=== PATIENT | male | born 2000 | race Caucasian/White ===

== ENCOUNTER 2018-08-16 11:45 | Emergency (ER) | payer OTHER | END 2018-08-16 12:33 | disposition home or self-care (01) | LOC: M ED 11:45 | DX: S80.01XA Contusion of right knee, initial encounter (principal); W10.8XXA Fall (on) (from) other stairs and steps, initial encounter; Y92.098 Other place in other non-institutional residence as the place of occurrence of the external cause | CPT/HCPCS: 73564 ==

== ENCOUNTER 2019-01-30 18:15 | Emergency (ER) | payer OTHER ==
[~2019-01-30] VITALS: Ht 190.5 cm; Wt 143.2 kg
[2019-01-30] MEDS ORDERED: ONDANSETRON 4 MG ORAL DISINTEGRATING TAB (Q0162 PER 1MG) PO ONE (21:45)
--- NOTE | 2019-01-30 22:14 | REP ---
Clinical: Trauma . Comparison: 07/24/2014, 08/21/2015 . Findings: The ventricles, sulci, and cisterns are normal in position and appearance. Jameson-white differentiation is maintained. No acute intracranial hemorrhage, mass/mass effect, pathology or trauma/injury. No evidence for acute infarction. No extra-axial fluid collection. Calvarium is intact. Paranasal sinuses and mastoid air cells are clear. Impression: Normal noncontrast head CT. No evidence for acute intracranial pathology or trauma/injury. Electronically Signed by Brian Enciso MD 01/30/2019 10:05 P
[2019-01-30] MEDS ORDERED: ONDA4TAB6 PO (22:23)
[2019-01-30 22:55] VITALS: BP 126/68
== END 2019-01-30 22:45 | disposition home or self-care (01) ==
LOC: M ED 18:15
DX: S06.0X0A Concussion without loss of consciousness, initial encounter (principal); X58.XXXA Exposure to other specified factors, initial encounter; Y92.89 Other specified places as the place of occurrence of the external cause; Y93.9 Activity, unspecified; Y99.0 Civilian activity done for income or pay
CPT/HCPCS: 70450; 99283; Q0162

== ENCOUNTER 2020-07-02 18:19 | Emergency (ER) | payer OTHER ==
[~2020-07-02] VITALS: Ht 190.5 cm; Wt 183.2 kg
[~2020-07-02 18:19] MED LIST: ONDA4TAB6 PO
[2020-07-02 19:55] LABS: BASO # 0.1 10^3/uL (0.0-0.2); BASO % 0.4 % (0.0-1.0); EOS # 0.1 10^3/uL (0.0-0.5); EOS % 0.7 % (0.0-3.0); HEMATOCRIT 47.8 % (42.0-52.0); HEMOGLOBIN 15.7 g/dl (13.5-17.5); LYMPH # 3.4 10^3/uL (1.5-5.0); LYMPH % 21.5 % (24.0-44.0); MEAN CORPUSCULAR HEMOGLOBIN 29.3 pg (27.0-33.0); MEAN CORPUSCULAR HGB CONC 32.8 g/dl (32.0-36.5); MEAN CORPUSCULAR VOLUME 89.2 fl (80.0-96.0); MONO # 0.9 10^3/uL (0.0-0.8); MONO % 5.6 % (0.0-5.0); NEUTROPHILS # 11.3 10^3/uL (1.5-8.5); PLATELET COUNT, AUTOMATED 271 10^3/uL (150-450); RED BLOOD COUNT 5.36 10^6/uL (4.30-6.10); WHITE BLOOD COUNT 15.9 10^3/uL (4.0-10.0)
[2020-07-02 20:05] LABS: INR 0.95; PROTHROMBIN TIME 12.9 SECONDS (11.8-14.0)
[2020-07-02] MEDS ORDERED: NS 1,000 ML IV ONE (20:15)
[2020-07-02 20:19] LABS: D-DIMER QUANT 374.86 ng/ml (<500)
[2020-07-02 21:32] LABS: ALBUMIN 3.5 GM/DL (3.2-5.2); ALT/SGPT 54 U/L (12-78); BILIRUBIN,DIRECT 0.1 MG/DL (0.0-0.2); BILIRUBIN,TOTAL 0.6 MG/DL (0.2-1.0); CK-MB VALUE MASS 1.7 NG/ML (<3.6); CPK CREATINE PHOSPHOKINASE 147 U/L (39-308); LIPASE 132 U/L (73-393); MB/CK RELATIVE INDEX 1.16 (< OR =4); TOTAL PROTEIN 7.5 GM/DL (6.4-8.2); TROPONIN I < 0.02 NG/ML (< 0.10)
[2020-07-02 21:44] LABS: BLOOD UREA NITROGEN 13 MG/DL (7-18); CALCIUM LEVEL 8.9 MG/DL (8.5-10.1); CARBON DIOXIDE LEVEL 25 MEQ/L (21-32); CHLORIDE LEVEL 101 MEQ/L (98-107); CREATININE FOR GFR 0.92 MG/DL (0.70-1.30); GLOMERULAR FILTRATION RATE > 60.0 (>60); GLUCOSE, FASTING 311 MG/DL (70-100); POTASSIUM SERUM 4.3 MEQ/L (3.5-5.1); SODIUM LEVEL 136 MEQ/L (136-145)
[2020-07-02 22:15] VITALS: BP 140/76
[2020-07-02 22:35] LABS: HEMOGLOBIN A1c 7.5 %
[2020-07-02] MEDS ORDERED: METF500T13 PO (23:00)
[2020-07-02] MEDS ORDERED: metFORMIN (GLUCOPHAGE) 500 MG TAB PO ONE (23:00)
--- NOTE | 2020-07-15 11:39 | ECGEPIP ---
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
--- NOTE | 2020-07-15 11:41 | ECGEPIP ---
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
== END 2020-07-03 00:38 | disposition home or self-care (01) ==
LOC: M ED 18:19
DX: R07.89 Other chest pain (principal); E11.9 Type 2 diabetes mellitus without complications

== ENCOUNTER → 2020-08-08 | Outpatient (REF) | payer OTHER ==
[~2020-08-08] MED LIST changes: +METF500T13 PO
[2020-08-08 13:01] LABS: BASO % 0.4 % (0.0-1.0); EOS # 0.1 10^3/uL (0.0-0.5); EOS % 1.1 % (0.0-3.0); HEMATOCRIT 48.8 % (42.0-52.0); HEMOGLOBIN 15.9 g/dl (13.5-17.5); LYMPH # 2.9 10^3/uL (1.5-5.0); LYMPH % 25.6 % (24.0-44.0); MEAN CORPUSCULAR HEMOGLOBIN 29.3 pg (27.0-33.0); MEAN CORPUSCULAR HGB CONC 32.6 g/dl (32.0-36.5); MONO # 0.7 10^3/uL (0.0-0.8); MONO % 6.2 % (0.0-5.0); NEUTROPHILS # 7.4 10^3/uL (1.5-8.5); NEUTROPHILS % 65.9 % (36.0-66.0); PLATELET COUNT, AUTOMATED 272 10^3/uL (150-450); RED BLOOD COUNT 5.42 10^6/uL (4.30-6.10); WHITE BLOOD COUNT 11.2 10^3/uL (4.0-10.0)
[2020-08-08 13:16] LABS: HEMOGLOBIN A1c 6.1 %
[2020-08-08 13:37] LABS: ALBUMIN 4.1 GM/DL (3.2-5.2); ALT/SGPT 59 U/L (12-78); BILIRUBIN,TOTAL 1.2 MG/DL (0.2-1.0); BLOOD UREA NITROGEN 16 MG/DL (7-18); CALCIUM LEVEL 9.1 MG/DL (8.5-10.1); CARBON DIOXIDE LEVEL 25 MEQ/L (21-32); CHLORIDE LEVEL 105 MEQ/L (98-107); CHOLESTEROL LEVEL 202 MG/DL (<200); CHOLESTEROL RISK RATIO 4.697 (<5); CREATININE FOR GFR 0.86 MG/DL (0.70-1.30); GLOMERULAR FILTRATION RATE > 60.0 (>60); GLUCOSE, FASTING 120 MG/DL (70-100); HDL CHOLESTEROL 43 MG/DL (>40); LDL CHOLESTEROL 132 MG/DL (<100); NON-HDL-C 159 MG/DL; POTASSIUM SERUM 4.7 MEQ/L (3.5-5.1); SODIUM LEVEL 137 MEQ/L (136-145); TOTAL PROTEIN 7.7 GM/DL (6.4-8.2); TRIGLYCERIDES LEVEL 133 MG/DL (<150)
== END ==
LOC: M LAB REF 12:20
PROVIDERS: ATTEND Physician Assistant
DX: E11.9 Type 2 diabetes mellitus without complications (principal)

== ENCOUNTER 2021-09-20 15:34 | Emergency (ER) | payer OTHER ==
[~2021-09-20] VITALS: Ht 190.5 cm; Wt 169.4 kg
[2021-09-20 16:45] LABS: RSV AMPLIFICATION NEGATIVE (NEGATIVE)
--- OUTSIDE RECORDS SUMMARY | 2021-09-20 19:32 | CCD ---
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 Role Phone Jos Smith Unavailable Unavailable Jos Smith Unavailable Unavailable Jos Smith Unavailable Unavailable Jos Smith Unavailable Unavailable Jos Smith Unavailable Unavailable Jos Smith Unavailable Unavailable Scordo, M Ritu PA Unavailable Unavailable Scordo, M Ritu PA Unavailable Unavailable Scordo, M Ritu PA Unavailable Unavailable Scordo, M Ritu PA Unavailable Unavailable Scordo, M Ritu PA Unavailable Unavailable Scordo, M Ritu PA Unavailable Unavailable Scordo, M Ritu PA Unavailable Unavailable Scordo, M Ritu PA Unavailable Unavailable Scordo, M Ritu PA Unavailable Unavailable Scordo, M Ritu PA Unavailable Unavailable Scordo, M Ritu PA Unavailable Unavailable Scordo, M Ritu PA Unavailable Unavailable Scordo, M Ritu PA Unavailable Unavailable Scordo, M Ritu PA Unavailable Unavailable Scordo, M Ritu PA Unavailable Unavailable Scordo, M Rtiu PA Unavailable Unavailable Scordo, M Ritu PA Unavailable Unavailable Scordo, M Ritu PA Unavailable Unavailable Scordo, M Ritu PA Unavailable Unavailable Scordo, M Ritu PA Unavailable Unavailable Scordo, M Ritu PA Unavailable Unavailable Scordo, M Ritu PA Unavailable Unavailable Scordo, M Ritu PA Unavailable Unavailable Scordo, M Ritu PA Unavailable Unavailable Scordo, M Ritu PA Unavailable Unavailable Scordo, M Ritu PA Unavailable Unavailable Scordo, M Ritu PA Unavailable Unavailable Scordo, M Ritu PA Unavailable Unavailable Scordo, M Ritu PA Unavailable Unavailable Scordo, M Ritu PA Unavailable Unavailable Scordo, M Ritu PA Unavailable Unavailable Scordo, M Ritu PA Unavailable Unavailable Scordo, M Ritu PA Unavailable Unavailable Scordo, M Ritu PA Unavailable Unavailable Scordo, M Ritu PA Unavailable Unavailable Scordo, M Ritu PA Unavailable Unavailable Scordo, M Ritu PA Unavailable Unavailable Scordo, M Ritu PA Unavailable Unavailable Scordo, M Ritu PA Unavailable Unavailable Scordo, M Ritu PA Unavailable Unavailable Scordo, M Ritu PA Unavailable Unavailable Re-disclosure Warning The records that you are about to access may contain information from federally-assisted alcohol or drug abuse programs. If such information is present, then the following federally mandated warning applies: This information has been disclosed to you from records protected by federal confidentiality rules (42 CFR part 2). The federal rules prohibit you from making any further disclosure of this information unless further disclosure is expressly permitted by the written consent of the person to whom it pertains or as otherwise permitted by 42 CFR part 2. A general authorization for the release of medical or other information is NOT sufficient for this purpose. The Federal rules restrict any use of the information to criminally investigate or prosecute any alcohol or drug abuse patient.The records that you are about to access may contain highly sensitive health information, the redisclosure of which is protected by Article 27-F of the [facility] Public Health law. If you continue you may have access to information: Regarding HIV / AIDS; Provided by facilities licensed or operated by the [facility] Office of Mental Health; or Provided by the [facility] Office for People With Developmental Disabilities. If such information is present, then the following [facility] mandated warning applies: This information has been disclosed to you from confidential records which are protected by state law. State law prohibits you from making any further disclosure of this information without the specific written consent of the person to whom it pertains, or as otherwise permitted by law. Any unauthorized further disclosure in violation of state law may result in a fine or skilled nursing sentence or both. A general authorization for the release of medical or other information is NOT sufficient authorization for further disc losure. Family History Family Member Name Family Member Gender Family Member Status Date o f Status Description Data Source(s) Unknown Unknown Encounters Encounter Providers Location Date Indications Data Source(s ) Outpatient Attender: Ritu CANCHOLA 09/23/2020 10:43:[address] [facility] Outpatient Attender: Ritu CANCHOLA 08/08/2020 01:52:[address] [facility] Outpatient Attender: Ritu CANCHOLA 08/08/2020 01:52:[address] [facility] Outpatient Attender: Ritu CANCHOLA 08/08/2020 01:24:[address] [facility] Outpatient Attender: Ritu CANCHOLA 08/08/2020 01:24:[address] [facility] Outpatient Attender: Ritu CANCHOLA 08/08/2020 01:13:[address] [facility] Outpatient Attender: Ritu CANCHOLA 08/08/2020 01:13:[address] [facility] Outpatient Attender: Ritu CANCHOLA 08/08/2020 10:00:[address] [facility] Outpatient Attender: Ritu ALARCON FP 08/08/2020 09:50:[address] [facility] Outpatient Attender: Ritu ALARCON FP 07/29/2020 07:14:[address] [facility] Outpatient Attender: Ritu ALARCON FP 07/26/2020 03:28:[address] [facility] Outpatient Attender: Ritu ALARCON FP 07/26/2020 03:28:[address] [facility] Outpatient Attender: Ritu ALARCON FP 07/26/2020 02:09:[address] [facility] Outpatient Attender: Ritu ALARCON FP 07/26/2020 02:05:[address] [facility] Outpatient Attender: Ritu ALARCON FP 07/26/2020 02:01:[address] [facility] Outpatient Attender: Ritu ALARCON FP 07/26/2020 01:42:[address] [facility] Outpatient Attender: Ritu ALARCON FP 07/26/2020 01:41:[address] [facility] Outpatient Attender: Ritu ALARCON FP 07/26/2020 01:39:[address] [facility] Medications No Information Insurance Providers Payer name Policy type / Coverage type Policy ID Covered libertarian ID Covered libertarian's relationship to saucedo Policy [place] Plan [place] [id number] SP [id number] HMO BLUE MEDICAID [id number] SP [id number] O BLUE MEDICAID [id number] SP [id number] Medicaid Dental O [id number] S [id number] Medicaid S [id number] S [id number] Managed Care - Community Plan [facility] P [id number] S [id number] Managed Care - Community Plan [facility] P [id number] S [id number] Medicaid S [id number] S [id number] Managed Care - Community Plan [facility] P [id number] S [id number] UNHC COMMUNITY PLAN MCDO [id number] SP [id number] UNHC COMMUNITY PLAN [facility] [id number] SP [id number] Managed Care - [facility] Community Plan P [id number] S [id number] Managed Care - Community Plan United [employer] P [id number] S [id number] Medicaid S [id number] S [id number] Medicaid S [id number] S [id number] Managed Care [place] P [id number] S [id number] Managed Care Lux O [id number] S [id number] Medicaid S [id number] S [id number] Managed Care - [facility] Community Plan P [id number] S [id number] [facility] [id number] SP [id number] [facility](MCAID) O [id number] S [id number] [facility] Community Plan Health Maintenance Organization (HMO) [id number] Self NUNN CROSS STRONG PLAN [id number] SP [id number] D Managed Care United [employer] O [id number] S [id number] D Managed Care [facility] O [id number] S [id number] D Managed Care [facility] S [id number] S [id number] D Managed Care [facility] P UNAVAILABLE S UNAVAILABLE EXCELLUS BCBS P [id number] S [id number] MEDICAID [id number] SP [id number] LUX [id number] SP [id number] Problems, Conditions, and Diagnoses Code Display Name Description Problem Type Effective Dates Data Source(s) 78145578 Type 2 diabetes mellitus without complic ations Type 2 diabetes mellitus without complications 07/26/2020 03:27:55 PM EDT [facility] V85.43 BMI 50.0-59.9 BMI 50.0-59.9 07/26/2020 03:27:[address] [facility] Surgeries/Procedures No Information Results ID Date Data Source [id number] 08/08/2020 09:44:[address] [facility] Labs In-House Blood TestsDate/Time Colle cted: August 08, 2020 8:55 AMTest Result Reference Range Normal ValueComments: blood drawn in office taken from left AC. Tolerated well. Patient unable to provide urine.Denisse Martino MA, August 08, 2020 9:47 AMAssessment & Plan Orders:[id number] Vst-Est Level I [CPT-12961] 09905 - Venipuncture [CPT-50963] Name Value Range Interpretation Code Description Data Em rce(s) Supporting Document(s) ID Date Data Source [id number] 08/08/2020 08:50:[address] [facility] Name Value Range Interpretation Code Description Data Em rce(s) Supporting Document(s) BG FASTING 120 mg/dL 70-100 H [facility] TSH 1.140 microintl units/mL 0.358-3.740 N [facility] ID Date Data Source [id number] 08/08/2020 08:50:[address] [facility] Name Value Range Interpretation Code Description Data Em rce(s) Supporting Document(s) HGBA1C 6.1 % N [facility] ID Date Data Source [id number] 08/08/2020 08:50:[address] [facility] Name Value Range Interpretation Code Description Data Em rce(s) Supporting Document(s) HCT 48.8 % 42.0-52.0 N [facility] HGB 15.9 g/dL 13.5-17.[address] [facility] MCH 32.6 G/DL pg 32.0-36.5 N [facility] MCHC 29.3 PG % 27.0-33.[address] [facility] PLATELETS 272 10 10*3/mm3 150-[address] [facility] RBC 5.42 10 10*6/mm3 4.30-6.[address] [facility] RDW 12.4 % 11.5-14.[address] [facility] WBC TOTAL 11.2 4.0-10.[address] [facility] ID Date Data Source [id number] 07/26/2020 02:39:[address] [facility] Measurements & CalculationsHeight: 73.25 inches 186.06 cm 6 ft. 1.25 in.Weight: 390 pounds 2 oz. 177.33 kg Body Mass Index (BMI): 51.31BMI Interpretation: Morbidly ObeseBody Surface Area (BSA): 2.87Weight Management Education Done (Nutrition/Physical Activity)Vital SignsTemperature: 98.3FPulse Rate: 95 beats/min uteRespiratory Rate: 18 respirations/minuteBlood Pressure: 150/95 automaticO2 Saturation: 98% Vital Signs performed by: Nancy Torre MA, July 26, 2020 2:55 PMInitial Intake Information From: patientRoom #: 12Infectious Disease / Travel ScreeningRecent travel for you or any close contacts? NoHave you had any close contact with anyone diagnosed with or under investigation for COVID-19 (coronavirus)? NoFever? NoRespiratory symptoms: cough, cold, congestion, shortness of breath, difficulty breathing? NoLoss of smell? NoLoss of taste? NoSmoking, Tobacco, Vaping or Smoke Exposure StatusSmoke Status: never smokerTobacco Use: NoDo you vape? NoHealthcare HistorySince your last office visit...Have you been admitted to the hospital? [facility] PainHospital admission date reported today: 07/02/2020Have you been to an emergency room (ER) or urgent care clinic? NoHave you seen another healthcare provider? NoHave you seen a dentist? NoIntake performed by: Nancy Torre MA, July 26, 2020 2:45 PMRate Your HealthIn general, would you say your health is? Very GoodPain AssessmentAre you currently having any pain which... You would like your provider to address? No Affects your activity level? NoDepression Screening - PHQ-2Over the last two weeks, have you... Had little interest or pleasure in doing things? Not at all Been feeling down, depressed, or hopeless? Not at all PHQ-2 Score: 0Anxiety Screening - PRAKASH-2Over the last two weeks, have you been... Feeling nervous, anxious, or on edge? Several days Unable to stop or control worrying? Several days PRAKASH-2 Score: 2PRAPARE Sociodemographic Characteristics Race: White Ethnicity: Not or Preferred Language: EnglishScreening, Brief Intervention, & Referral to Treatment (SBIRT)Pre-Screening Questions How many times have you have 5 or more drinks in a day? 0How many times have you used an illegal drug or used a prescription medication for a non-medical reason? 0Performed by: Nancy Torre MA, July 26, 2020 2:48 PMPatient History Medical History:DepressionHx of prior Head Injury: concussion last year 2013 playing footballSpCredit Benchmark Problem - IEP, speech therapy and OT in Elementary gradesDevelopmental DelayLast Dental Exam: 12/2014Last eye exam - school exams onlyDIabetesSurgical History:Tonsillectomy - 09/05/2009Family History:Father - mental health issues @ age 14FH - diabetesFH - cancerFH- hypertensionFH - strokeSocial/Personal History:Lives mother and 1 younger brother Dad lives in [place]. Talks with his dad [id number] gradeSmoking History:Patient has never smoked. Chief Complaintannual examHistory of Present Illness (HPI)20 yo male presents to establish care after recently being diagnosed with T2DM in the ED. He was started on metformin and he is feeling well. Compliant with and tolerating without side effects. He has made "massive" lifestyle changes. Working on being active and lowering his carb intake. He would like a glucometer. Pt would like to see a dietitian. He also has a history of depression, but is coping well without meds. Has not had a PCP in years.Transitions of Care InboundProblem ReviewProblem List was reviewed and/or updated during this visit.Medication Reconciliation & ReviewMedication List was reviewed and/or updated during this visit, including review of any kddo-fhn-rzrujzz medications, herbal therapies, and/or supplements.Allergy ReviewAllergy List was reviewed and/or updated during this visit.Adult Preventive CareProvider Calculated and Reviewed all Clinical Protocols for patient today. Labs/Meds/Other Counseling-Nutrition and Physical Activity:BMI Interpretation: Morbidly Obese (07/26/2020) Counseling: Done (07/26/2020) Physical Activity: Done (07/26/2020)Review of Systems Eyes: Denies blurring of vision, double vision, irritation, discharge, vision loss, eye pain, eye swelling, droopy eyelid, sensitivity to light, redness, itching. Cardiovascular: Denies chest pain, palpitations, feeling faint, trouble breathing w/exertion, SOB upon lying down, SOB at night, peripheral edema, elevated blood pressure, decreased heart rate. Respiratory: Denies cough, difficulty breathing, shortness of breath, excessive sputum, coughing up blood, wheezing, chest pain. Gastrointestinal: Denies nausea, vomiting, heartburn. Genitourinary: Denies urinary incontinence, pain with urination, burning with urination, urinary frequency, urinary hesitancy, urinary urgency, urinary urgency at night, incomplete emptying, blood in urine, painful intercourse, decreased libido, impotence, penile discharge, penile sores, genital foul odor, genital sores, genital burning, genital itching, genital warts, anal discharge, anal sores, anal warts. Physical ExamGeneral Appearance: well nourished, well hydrated, no acute distressRespiratory, Auscultation: clear to auscultation bilaterally; no rales, rhonchi, or wheezesRespiratory, Effort: no intercostal retractions or use of accessory musclesCardiovascular, Auscultation: S1, S2 audible; no murmur, rub, or gallop; RRRAbdomen: soft, non-tender, no masses, bowel sounds normalCare Management Plan Transitions of CareInboundRate Your HealthIn general, would you say your health is? Very GoodAssessment & Plan Problems:Added: BMI 50.0-59.9 (ICD-V85.43) (EJV36-I38.43)Type 2 diabetes mellitus without complications (ICD-648.00) (KNL93-J79.9)Assessment not SavedType 2 diabetes mellitus without complications (MAZ55-C64.9): will get labs. continue with new lifetsyle changes. glucometer script sent. will refer to nutrition. congratulated patient on his efforts and positive attitude. pt will bring blood sugar log to next visit. discussed s/s that would warrant ED eval. will discuss DM vaccines, foot exam, and eye exam at follow up. Medications:ACCU-CHEK FASTCLIX LANCETSACCU-CHEK FITZ PLUS IN VITRO STRIPACCU- CHEK FITZ DEVICEMETFORMIN HCL 500 MG ORAL TABLETMedication Changes:Added: METFORMIN HCL 500 MG ORAL TABLET-1 tablet twice a dayNew Prescription:ACCU-CHEK FITZ DEVICE-to be used to monitor blood sugar twice daily and if not feeling well, dx code: e11.65 Qty: 1[Device] Refills: 0 Method: ElectronicACCU-CHEK FITZ PLUS IN VITRO STRIP-to be used to check blood sugar twice daily and as needed if not feeling well, dx code: e11.65 Qty: 90[Strip] Refills: 0 Method: ElectronicACCU-CHEK FASTCLIX LANCETS-to be used to monitor blood sugar twice daily and as needed if not feeling well, dx code: e11.65 Qty: 90[Unspecified] Refills: 0 Method: ElectronicRemoved:PROZAC 20 MG ORAL CAPSULE-1 tab po qdAllergies:No Known Allergies (updated 03/16/2016) Orders:Nutrition [CPT-18108] COMP METABOLIC PANEL [CPT-06854] CBC W/DIFF [CPT- 07451] HgBA1c [CPT-31990] LIPID PANEL [CPT-80896] TSH [CPT-20124] URINE MICROALBUMIN - QUANTIATIVE [CPT-77241] Adult - Ofc Vst, NEW, Level III [CPT- 79689] Follow-Up Return to clinic: in 30 days for preventive care visitMedications:ACCU-CHEK FASTCLIX LANCETS (LANCETS) to be used to monitor blood sugar twice daily and as needed if not feeling well, dx code: e11.65 #90[Unspecified] x 0 Entered and Authorized by: Ritu ALARCON Method used: Electronically to [facility]* (retail) [address] [place] [address] RxID: [id number] FITZ PLUS IN VITRO STRIP (GLUCOSE BLOOD) to be used to check blood sugar twice daily and as needed if not feeling well, dx code: e11.65 #90[Strip] x 0 Route:IN VITRO Entered and Authorized by: Ritu ALARCON Method used: Electronically to [facility]* (retail) [address] [place] [address] Note to Pharmacy: Route: IN VITRO; RxID: [id number] FITZ DEVICE (BLOOD GLUCOSE MONITORING SUPPL) to be used to monitor blood sugar twice daily and if not feeling well, dx code: e11.65 #1[Device] x 0 Entered and Authorized by: Ritu ALARCON Method used: Electronically to [facility]* (retail) [address] [place] [address] RxID: [id number] signed by Ritu ALARCON on 07/26/2020 at 3:27 PM Name Value Range Interpretation Code Description Data Em rce(s) Supporting Document(s) Procedure Social History No Information
[2021-09-20 19:51] VITALS: BP 146/79
== END 2021-09-20 19:56 | disposition home or self-care (01) ==
LOC: M ED 15:34
DX: J00 Acute nasopharyngitis [common cold] (principal); E11.9 Type 2 diabetes mellitus without complications; Z79.84 Long term (current) use of oral hypoglycemic drugs

== ENCOUNTER → 2022-04-06 | Outpatient (CLI) | payer OTHER | LOC: M PLAIMG 06:33 | PROVIDERS: ATTEND Physician Assistant | DX: M75.41 Impingement syndrome of right shoulder (principal) ==

== ENCOUNTER 2024-07-26 15:42 | Emergency (ER) | payer BC, OTHER ==
[~2024-07-26] VITALS: Ht 190.5 cm; Wt 150.4 kg
[~2024-07-26 15:42] MED LIST changes: +ONDA-282 PO; -ONDA4TAB6 PO
[2024-07-26 17:52] VITALS: TEMP 98.7
[2024-07-26 21:30] VITALS: BP 165/89; O2SAT 100
[2024-07-26] MEDS ORDERED: IBUP-1022 PO (21:33)
[2024-07-26] MEDS: IBUPROFEN 600MG TAB PO ONE (21:35)
== END 2024-07-26 21:41 | disposition home or self-care (01) ==
LOC: M ED 15:42
DX: S93.402A Sprain of unspecified ligament of left ankle, initial encounter (principal); Y92.019 Unspecified place in single-family (private) house as the place of occurrence of the external cause; Y93.9 Activity, unspecified; Y99.9 Unspecified external cause status; E11.9 Type 2 diabetes mellitus without complications; F10.10 Alcohol abuse, uncomplicated; Z79.1 Long term (current) use of non-steroidal anti-inflammatories (NSAID); Z79.84 Long term (current) use of oral hypoglycemic drugs